=== PATIENT | female | born 1995 | race Caucasian/White ===

== ENCOUNTER → 2018-08-03 | Outpatient (REF) | payer OTHER ==
[2018-08-04 10:57] LABS: HEPATITIS A ANTIBODY IGM NEGATIVE (NEGATIVE); HEPATITIS B CORE ANTIBODY IGM NEGATIVE (NEGATIVE); HEPATITIS B SURFACE ANTIGEN NEGATIVE (NEGATIVE); HIV 1&2 SCREEN CENTAUR NEGATIVE (NEGATIVE)
[2018-08-04 11:00] LABS: HEPATITIS C VIRUS ABY INDEX > 11.0 INDEX (<0.8)
== END ==
LOC: M SFHCCLAY 10:05
PROVIDERS: ATTEND Family Medicine
DX: Z87.898 Personal history of other specified conditions (principal)

== ENCOUNTER → 2019-06-27 | Outpatient (REF) | payer OTHER ==
[2019-06-27 11:52] LABS: HEMATOCRIT 41.5 % (36.0-47.0); HEMOGLOBIN 13.2 g/dl (12.0-15.5); MEAN CORPUSCULAR HEMOGLOBIN 27.2 pg (27.0-33.0); MEAN CORPUSCULAR HGB CONC 31.8 g/dl (32.0-36.5); MEAN CORPUSCULAR VOLUME 85.6 fl (80.0-96.0); PLATELET COUNT, AUTOMATED 278 10^3/uL (150-450); RED BLOOD COUNT 4.85 10^6/uL (4.00-5.40); WHITE BLOOD COUNT 6.6 10^3/uL (4.0-10.0)
== END ==
LOC: M SFHCCLAY 08:59
PROVIDERS: ATTEND Family Medicine
DX: Z01.818 Encounter for other preprocedural examination (principal)

== ENCOUNTER → 2020-05-13 | Outpatient (REF) | payer OTHER ==
[2020-05-13 15:37] LABS: CHLAMYDIA DNA AMPLIFICATION NEGATIVE (NEGATIVE); GC DNA AMPLIFICATION NEGATIVE (NEGATIVE)
== END ==
LOC: M SFHCWAGY 13:11
PROVIDERS: ATTEND Obstetrics & Gynecology
DX: Z12.4 Encounter for screening for malignant neoplasm of cervix (principal)

== ENCOUNTER → 2020-07-24 | Outpatient (REF) | payer OTHER ==
[2020-07-24 16:09] LABS: URINE PREG TEST NEGATIVE (NEGATIVE)
[2020-07-24 16:13] LABS: HEMATOCRIT 39.8 % (36.0-47.0); HEMOGLOBIN 12.5 g/dl (12.0-15.5); MEAN CORPUSCULAR HEMOGLOBIN 27.2 pg (27.0-33.0); MEAN CORPUSCULAR HGB CONC 31.4 g/dl (32.0-36.5); MEAN CORPUSCULAR VOLUME 86.7 fl (80.0-96.0); PLATELET COUNT, AUTOMATED 267 10^3/uL (150-450); RED BLOOD COUNT 4.59 10^6/uL (4.00-5.40); WHITE BLOOD COUNT 6.2 10^3/uL (4.0-10.0)
== END ==
LOC: M LABDRAWC 15:51
DX: Z00.00 Encounter for general adult medical examination without abnormal findings (principal)

== ENCOUNTER 2020-08-19 16:09 | Emergency (ER) | payer BC, OTHER ==
[~2020-08-19] VITALS: Ht 170.2 cm; Wt 60.4 kg
[2020-08-19] MEDS ORDERED: METH40TA2 PO (16:19)
--- NOTE | 2020-08-19 16:49 | REP ---
INDICATION: right-sided headache. COMPARISON: None. TECHNIQUE: Axial CT images with multiplanar reformations. FINDINGS: No acute bleed or acute large vessel territorial infarct. Ventricles, cisterns and sulci are within normal limits. No mass effect or midline shift. No abnormal fluid collections. Paranasal sinuses and mastoid air cells are clear IMPRESSION: No acute findings. <Electronically signed by Endy Dick > 08/19/20 [id number]
[2020-08-19] MEDS ORDERED: KETOROLAC TROMETHAMINE 10 MG TAB PO ONE (18:50)
[2020-08-19 20:04] VITALS: BP 98/61
[2020-08-19] MEDS ORDERED: KETO10TAB PO (20:07)
== END 2020-08-19 20:10 | disposition home or self-care (01) ==
LOC: M ED 16:09
DX: R51.9 Headache, unspecified (principal); F41.9 Anxiety disorder, unspecified; F11.20 Opioid dependence, uncomplicated; B18.2 Chronic viral hepatitis C

== ENCOUNTER → 2020-10-01 | Outpatient (REF) | payer BC, OTHER ==
[~2020-10-01] MED LIST: KETO10TAB PO; METH40TA2 PO
== END ==
LOC: M SFHCWAGY 18:40
PROVIDERS: ATTEND Obstetrics & Gynecology
DX: R87.613 High grade squamous intraepithelial lesion on cytologic smear of cervix (HGSIL) (principal)

== ENCOUNTER → 2020-10-06 | Outpatient (REF) | payer OTHER ==
[2020-10-06 12:04] LABS: HEMOGLOBIN 11.8 g/dl (12.0-15.5); MEAN CORPUSCULAR HEMOGLOBIN 26.9 pg (27.0-33.0); MEAN CORPUSCULAR HGB CONC 31.1 g/dl (32.0-36.5); MEAN CORPUSCULAR VOLUME 86.8 fl (80.0-96.0); PLATELET COUNT, AUTOMATED 261 10^3/uL (150-450); RED BLOOD COUNT 4.38 10^6/uL (4.00-5.40); WHITE BLOOD COUNT 5.3 10^3/uL (4.0-10.0)
[2020-10-06 12:30] LABS: HCG, SERUM QUALITATIVE NEGATIVE (NEGATIVE)
== END ==
LOC: M SFHCCLAY 08:49
PROVIDERS: ATTEND Family Medicine
DX: Z01.818 Encounter for other preprocedural examination (principal)
CPT/HCPCS: 84703; 85027; G0480

== ENCOUNTER → 2020-12-25 | Outpatient (CLI) | payer BC, OTHER ==
[~2020-12-25] MED LIST changes: +DIAZ5TAB PO
== END ==
LOC: M LABSMTC 10:27
PROVIDERS: ATTEND Anesthesiology
DX: Z01.812 Encounter for preprocedural laboratory examination (principal); Z20.822 Contact with and (suspected) exposure to COVID-19

== ENCOUNTER 2020-12-29 13:50 | Day surgery (SDC) | payer BC, OTHER ==
[~2020-12-29] VITALS: Ht 170.2 cm; Wt 58.9 kg
[~2020-12-29 13:50] MED LIST changes: +LIDOCAINE 1% MDV 20ML VIAL SQ PRN; +LR 1,000 ML IV ONE
[2020-12-29] MEDS ORDERED: propofoL 200 MG/20 ML VIAL As Ordered ONE ×2 (14:09→15:07)
[2020-12-29] MEDS ORDERED: LIDOCAINE 2% 100MG/5ML SDV (FOR ANES.) As Ordered ONE (14:09)
[2020-12-29] MEDS ORDERED: MIDAZOLAM INJ 2MG/2ML VIAL (J2250 PER 1MG) As Ordered ONE (14:10)
[2020-12-29] MEDS ORDERED: fentaNYL 100 MCG/2 ML INJECTION (J3010) As Ordered ONE (14:10)
[2020-12-29] MEDS ORDERED: SILVER NITRATE APPLICATOR As Ordered ONE (14:47)
[2020-12-29] MEDS ORDERED: LIDOCAINE W/EPINEPHRINE 1% 20ML VIAL As Ordered ONE (14:47)
[2020-12-29] MEDS ORDERED: IODINE STRONG SOLN 15 ML BTL As Ordered ONE (15:08)
--- NOTE | 2020-12-29 15:42 | ROOPDOC ---
[facility] Report Of Operation Report of Operation DATE OF OPERATION: 12/29/20 PREOPERATIVE DIAGNOSIS: Cervical intraepithelial neoplasia-3 POSTOPERATIVE DIAGNOSIS: same PROCEDURE PERFORMED: Loop electrosurgical excision procedure (LEEP) SURGEON: Sushila Hardwick DO P[employer] BARN MANAGER: None. ANESTHESIA: Intravenous (IV) sedation with local anesthesia/paracervical block. SPECIMEN(S) SENT TO PATHOLOGY: Cervix with ecto/endocervix , at level of SCJ. Tagged at 12 o'clock w/ suture ESTIMATED BLOOD LOSS: 20 mL. FLUIDS PLACED: 500 mL. DRAINS: In and out catheter, 30 mL. COMPLICATIONS: None. ANTIBIOTICS: None indicated. INTRAOPERATIVE FINDINGS: Dysplasia at 3,7,12 INDICATIONS: CIN3 DESCRIPTION OF PROCEDURE: The patient was counseled and consented on the risks, benefits, indications, and alternatives of the procedure. Informed consent was obtained. She was taken to the operating room with an IV running in placed on the operating table and then dorsal supine position. Anesthesia was found to be adequate. She was placed in the high lithotomy position. She was prepared and draped in normal sterile fashion. Time-out was performed per protocol. The bladder was drained with sterile in and out catheter. A coated Graves speculum was placed into the vagina with good visualization of the cervix. The cervix was coated with acetic acid and the dysplasia was evident even without colposcopy. The size 25 mm x 12 mm loop was used to excise the the cervix at the level of the squamocolumnar junction. The anterior and posterior portions of the cervix were removed as one specimen. The SCJ was tagged at 12 o'clock with suture. The remaining raw surface of the cervix was cauterized with a roller ball cautery. Excellent hemostasis was noted. Monsel solution was applied to ensure hemostasis. Paracervical block was performed for postoperative comfort. 8 mL of 1% Lidocaine with epinephrine used for the paracervical block. Sponge, needle, and instrument counts were correct per protocol. The patient tolerated the entire procedure very well. She was transferred to the PACU in good and stable condition. SUSHILA HARDWICK DO Dec 29, 2020 15:42
[2020-12-29 16:15] VITALS: BP 101/61
== END 2020-12-29 16:30 | disposition home or self-care (01) ==
LOC: M SDC 13:50
PROVIDERS: ATTEND Obstetrics & Gynecology
DX: D06.9 Carcinoma in situ of cervix, unspecified (principal); F41.9 Anxiety disorder, unspecified; Z79.891 Long term (current) use of opiate analgesic; F17.290 Nicotine dependence, other tobacco product, uncomplicated
CPT/HCPCS: 57522; 81025; 88307; J2250; J3010

== ENCOUNTER → 2021-06-22 | Outpatient (CLI) | payer BC, OTHER, MEDICAID ==
[~2021-06-22] MED LIST changes: +ISOVUE-370 76% 100ML VIAL As Ordered ONE; -LIDOCAINE 1% MDV 20ML VIAL SQ PRN; -LR 1,000 ML IV ONE
== END ==
LOC: M RAD 09:06
PROVIDERS: ATTEND Neurological Surgery
DX: I67.1 Cerebral aneurysm, nonruptured (principal)
CPT/HCPCS: 70496; Q9967

== ENCOUNTER → 2022-01-15 | Outpatient (REF) | payer BC, OTHER, MEDICAID ==
[~2022-01-15] MED LIST changes: -ISOVUE-370 76% 100ML VIAL As Ordered ONE
== END ==
LOC: M WUC 16:08
PROVIDERS: ATTEND Student in an Organized Health Care Education/Training Program
DX: L02.31 Cutaneous abscess of buttock (principal)

== ENCOUNTER 2022-09-26 19:09 | Emergency (ER) | payer BC, MEDICAID, OTHER ==
[~2022-09-26] VITALS: Ht 162.6 cm; Wt 52.1 kg
[2022-09-26 19:30] VITALS: BP 118/72
[2022-09-26] MEDS ORDERED: NS 1,000 ML IV ONE (19:45)
[2022-09-26] MEDS ORDERED: METOCLOPRAMIDE INJ 10MG/2ML VIAL IV ONE (19:45)
[2022-09-26 20:14] LABS: BASO % 0.2 % (0.0-1.0); EOS % 0.1 % (0.0-3.0); HEMATOCRIT 39.5 % (36.0-47.0); HEMOGLOBIN 12.1 g/dl (12.0-15.5); LYMPH # 1.1 10^3/uL (1.5-5.0); MEAN CORPUSCULAR HGB CONC 30.6 g/dl (32.0-36.5); MEAN CORPUSCULAR VOLUME 88.2 fl (80.0-96.0); MONO # 0.5 10^3/uL (0.0-0.8); MONO % 5.3 % (2.0-8.0); NEUTROPHILS # 7.2 10^3/uL (1.5-8.5); NEUTROPHILS % 82.2 % (36.0-66.0); PLATELET COUNT, AUTOMATED 293 10^3/uL (150-450); RED BLOOD COUNT 4.48 10^6/uL (4.00-5.40); WHITE BLOOD COUNT 8.8 10^3/uL (4.0-10.0)
[2022-09-26] MEDS ORDERED: ISOVUE-370 76% 100ML VIAL As Ordered ONE (20:24)
== END 2022-09-26 21:08 | disposition home or self-care (01) ==
LOC: EDBD 19:09 → M ED 19:09
DX: R51.9 Headache, unspecified (principal); F41.9 Anxiety disorder, unspecified; B19.20 Unspecified viral hepatitis C without hepatic coma; F19.10 Other psychoactive substance abuse, uncomplicated; F17.200 Nicotine dependence, unspecified, uncomplicated; Z79.899 Other long term (current) drug therapy
CPT/HCPCS: 70450; 70496; 80047; 84702; 85025; 93041; 94760; 96361; 96374; 99284; J2765; Q9967

== ENCOUNTER 2022-09-27 12:23 | Inpatient (IN) | payer OTHER, MEDICAID ==
[~2022-09-27] VITALS: Ht 170.2 cm; Wt 50.0 kg
[2022-09-27] MEDS ORDERED: METOCLOPRAMIDE INJ 10MG/2ML VIAL IV ONE (12:50)
[2022-09-27] MEDS ORDERED: diphenhydrAMINE 50MG/ML VIAL IV STA (12:50)
[2022-09-27] MEDS ORDERED: NS 1,000 ML IV ONE (12:50)
[2022-09-27] MEDS ORDERED: KETOROLAC 30 MG/ML 1ML VIAL IV ONE (12:50)
[2022-09-27 13:46] LABS: HEMATOCRIT 42.6 % (36.0-47.0); HEMOGLOBIN 13.4 g/dl (12.0-15.5); MEAN CORPUSCULAR HEMOGLOBIN 27.2 pg (27.0-33.0); MEAN CORPUSCULAR HGB CONC 31.5 g/dl (32.0-36.5); MEAN CORPUSCULAR VOLUME 86.4 fl (80.0-96.0); PLATELET COUNT, AUTOMATED 365 10^3/uL (150-450); RED BLOOD COUNT 4.93 10^6/uL (4.00-5.40)
[2022-09-27 13:56] LABS: AMPHETAMINES LEVEL URINE NEGATIVE (NEGATIVE); BARBITURATES URINE NEGATIVE (NEGATIVE); CANNABINOIDS URINE NEGATIVE (NEGATIVE); PHENCYCLIDINE URINE NEGATIVE (NEGATIVE)
[2022-09-27 14:02] LABS: BENZODIAZEPINES URINE POSITIVE (NEGATIVE); COCAINE METABOLITE URINE POSITIVE (NEGATIVE); METHADONE URINE POSITIVE (NEGATIVE); OPIATES URINE POSITIVE (NEGATIVE)
[2022-09-27 14:24] LABS: ETHYL ALCOHOL (ETHANOL) < 0.003 % (0.000-0.010)
[2022-09-27 14:25] LABS: ACETAMINOPHEN LEVEL < 2.0 UG/ML (10.0-20.0); HCG, SERUM QUALITATIVE NEGATIVE (NEGATIVE); SALICYLATE LEVEL < 3.0 MG/DL (<30)
[2022-09-27 14:26] LABS: ALBUMIN 4.2 G/DL (3.2-5.2); ALKALINE PHOSPHATASE 73 U/L (46-116); ALT/SGPT 25 U/L (7.0-40); AST/SGOT 30 U/L (<34); BILIRUBIN,DIRECT 0.1 MG/DL (<0.4); BILIRUBIN,TOTAL 0.5 MG/DL (0.3-1.2); BLOOD UREA NITROGEN 14 MG/DL (9-23); CALCIUM LEVEL 10.2 MG/DL (8.5-10.1); CARBON DIOXIDE LEVEL 25 MMOL/L (20-31); CHLORIDE LEVEL 102 MMOL/L (98-107); CREATININE FOR GFR 0.73 MG/DL (0.55-1.30); GLOMERULAR FILTRATION RATE > 60.0 (>60); GLUCOSE, FASTING 98 MG/DL (60-100); POTASSIUM SERUM 3.9 MMOL/L (3.5-5.1); SODIUM LEVEL 139 MMOL/L (136-145); TOTAL PROTEIN 7.6 G/DL (5.7-8.2)
[2022-09-27 14:28] LABS: THYROID STIMULATING HORMONE 0.227 uIU/ML (0.55-4.78)
[2022-09-27] MEDS ORDERED: MAALOX 30 ML SUSP *UDC PO PRN (17:20)
[2022-09-27] MEDS ORDERED: ACETAMINOPHEN TAB 650MG DOSE (2X325MG) PO PRN (17:20)
[2022-09-27] MEDS ORDERED: IBUPROFEN 400MG TAB PO PRN (17:20)
[2022-09-27] MEDS ORDERED: OLANZapine ORAL DISINTEGRATING TAB 5MG PO PRN (17:20)
[2022-09-27] MEDS ORDERED: MOM 30ML SUSPENSION UDC PO PRN (17:20)
[2022-09-27 21:00] VITALS: BP 125/71
[2022-09-27] MEDS ORDERED: LORazepam 2 MG TAB PO PRN (21:25)
[2022-09-27 21:42] VITALS: BP 125/71
[2022-09-27] MEDS: traZODone 50 MG TAB PO PRN (21:44)
[2022-09-27] MEDS: THIAMINE 100 MG TAB PO SCH (21:44)
[2022-09-28 06:47] VITALS: BP 117/55
[2022-09-28 07:00] VITALS: BP 124/66
[2022-09-28] MEDS: MULTIVITAMINS/MINERALS THERAP 1 TAB PO SCH (08:22)
[2022-09-28] MEDS: FOLIC ACID 1MG TAB PO SCH (08:22)
[2022-09-28] MEDS: THIAMINE 100 MG TAB PO SCH ×2 (08:22→20:20)
[2022-09-28] MEDS: NICOTINE 14 MG/24 HR TRANSDERMAL TD SCH (09:00)
[2022-09-28] MEDS ORDERED: LORazepam 1 MG TAB PO PRN (11:30)
[2022-09-28] MEDS: SERTRALINE HCL 50 MG TAB PO SCH (12:04)
[2022-09-28] MEDS ORDERED: HOME MED LIST COMPLETE! XX SCH (15:10)
[2022-09-28] MEDS: METHADONE 10MG TAB PO SCH (16:23)
[2022-09-28 16:30] VITALS: BP 125/69
[2022-09-29 06:36] VITALS: BP 127/68
[2022-09-29] MEDS: SERTRALINE HCL 50 MG TAB PO SCH (09:30)
[2022-09-29] MEDS: THIAMINE 100 MG TAB PO SCH ×2 (09:30→21:48)
[2022-09-29] MEDS: FOLIC ACID 1MG TAB PO SCH (09:30)
[2022-09-29] MEDS: MULTIVITAMINS/MINERALS THERAP 1 TAB PO SCH (09:30)
[2022-09-29] MEDS: METHADONE 10MG TAB PO SCH (09:31)
[2022-09-29] MEDS: NICOTINE 14 MG/24 HR TRANSDERMAL TD SCH (09:35)
[2022-09-29] MEDS ORDERED: ONDANSETRON 4MG ORAL DISINTEGRATING TAB PO PRN (10:35)
[2022-09-29] MEDS ORDERED: IBUPROFEN 600MG TAB PO PRN (10:35)
[2022-09-29] MEDS: diphenhydrAMINE 25MG CAP PO PRN (13:29)
[2022-09-29] MEDS: CYCLOBENZAPRINE 5MG TABLET PO PRN (13:30)
[2022-09-29 18:11] VITALS: BP 115/57
[2022-09-29] MEDS: cloNIDine 0.1MG TABLET PO SCH (21:48)
[2022-09-30 06:39] VITALS: BP 94/61
[2022-09-30] MEDS: cloNIDine 0.1MG TABLET PO SCH ×2 (09:51→21:12)
[2022-09-30] MEDS: SERTRALINE HCL 50 MG TAB PO SCH (09:51)
[2022-09-30] MEDS: MULTIVITAMINS/MINERALS THERAP 1 TAB PO SCH (09:51)
[2022-09-30] MEDS: FOLIC ACID 1MG TAB PO SCH (09:51)
[2022-09-30] MEDS: THIAMINE 100 MG TAB PO SCH (09:52)
[2022-09-30] MEDS: METHADONE 10MG TAB PO SCH (09:53)
[2022-09-30] MEDS: NICOTINE 14 MG/24 HR TRANSDERMAL TD SCH (09:55)
[2022-09-30] MEDS: diphenhydrAMINE 25MG CAP PO PRN (09:58)
[2022-09-30] MEDS: CYCLOBENZAPRINE 5MG TABLET PO PRN (09:59)
[2022-09-30] MEDS ORDERED: SERT50TA29 PO (15:10)
[2022-09-30 18:11] VITALS: BP 105/60
[2022-09-30] MEDS: traZODone 50 MG TAB PO PRN (21:12)
[2022-10-01 06:39] VITALS: BP 90/51
[2022-10-01 08:44] VITALS: BP 117/60
[2022-10-01 08:45] VITALS: BP 117/60
[2022-10-01] MEDS: cloNIDine 0.1MG TABLET PO SCH (08:45)
[2022-10-01] MEDS: MULTIVITAMINS/MINERALS THERAP 1 TAB PO SCH (08:45)
[2022-10-01] MEDS: SERTRALINE HCL 50 MG TAB PO SCH (08:45)
[2022-10-01] MEDS: FOLIC ACID 1MG TAB PO SCH (08:45)
[2022-10-01] MEDS: NICOTINE 14 MG/24 HR TRANSDERMAL TD SCH (08:46)
== END 2022-10-01 09:50 | disposition home or self-care (01) | DRG 897 ==
LOC: M ED 12:23 → M ED INP 17:20 → M PSY 21:04
PROVIDERS: ADMIT Student in an Organized Health Care Education/Training Program; ATTEND Student in an Organized Health Care Education/Training Program
DX: F11.94 Opioid use, unspecified with opioid-induced mood disorder (principal); F11.93 Opioid use, unspecified with withdrawal; E07.9 Disorder of thyroid, unspecified; F32.A Depression, unspecified; F41.9 Anxiety disorder, unspecified; F17.200 Nicotine dependence, unspecified, uncomplicated; Z91.52 Personal history of nonsuicidal self-harm; Z56.0 Unemployment, unspecified; Z79.899 Other long term (current) drug therapy; Z62.810 Personal history of physical and sexual abuse in childhood; Z20.822 Contact with and (suspected) exposure to COVID-19